=== PATIENT | female | born 1950 | race African-American/Black ===

== ENCOUNTER 2021-10-19 13:41 | Inpatient (IN) ==
[2021-10-19 14:33] LABS: PCO2 Arterial 23 mmHg (35-45); PO2 Arterial 118 mmHg (80-100)
[2021-10-19 14:58] LABS: ABS Monocytes 0.4 10^3/ul (0-0.8); ABS Neutrophils 3.4 10^3/ul (1.5-7.7); Eosinophil % 0.1 %; Hematocrit 47 % (35-47); Hemoglobin 15.4 g/dL (12.0-16.0); Lymphocyte % 20.4 %; Mean Corpuscular HGB Conc 33 g/dL (31-36); Mean Corpuscular Hemoglobin 29 pg (27-31); Mean Corpuscular Volume 88 fL (80-97); Mean Platelet Volume 9.2 fL (7.4-10.4); Nucleated Red Blood Cells % 0.1; Platelet Count 137 10^3/uL (150-450); Red Blood Count 5.33 10^6 /uL (3.70-4.87); Red Cell Distribution Width 16 % (10-15); White Blood Count 4.9 10^3/uL (3.5-10.8)
[2021-10-19] MEDS ORDERED: Lactated Ringers 1000 ml BAG 1,000 ML IV SCH (15:00)
[2021-10-19 15:07] LABS: Activated Partial Thrombo Time 37.7 seconds (26.0-38.0); INR 1.15 (0.86-1.15)
[2021-10-19 15:26] LABS: ALT 49 U/L (7-52); AST 78 U/L (13-39); Albumin 2.4 g/dL (3.2-5.2); Albumin/Globulin Ratio 0.6 (1-3); Alkaline Phosphatase 103 U/L (35-149); Anion Gap 10 mmol/L (2-11); Blood Urea Nitrogen 69 mg/dL (6-24); C Reactive Protein 75.72 mg/L (<8.01); CO2 Carbon Dioxide 19 mmol/L (22-32); Calcium 7.2 mg/dL (8.6-10.3); Chloride 108 mmol/L (101-111); Globulin 4.2 g/dL (2-4); Glucose 117 mg/dL (70-100); Potassium 4.9 mmol/L (3.5-5.0); Sodium 137 mmol/L (135-145); Total Protein 6.6 g/dL (6.4-8.9); eGFR CKD-EPI 5.5 (>60)
[2021-10-19 15:27] LABS: Troponin I 0.06 ng/mL (<0.03)
[2021-10-19 16:04] LABS: TSH Ultra Thyroid Stim Horm 3.69 mcIU/mL (0.34-5.60)
[2021-10-19 16:06] LABS: Free T4 0.85 ng/dL (0.61-1.12)
[2021-10-19] MEDS ORDERED: Albumin Human 25% 100 GM/400 ML BTL IV ONE (16:42)
[2021-10-19] MEDS ORDERED: Bumetanide IV 0.25 MG/ML 4 ml VIAL (1 mg) SLOW PUSH ONE (16:42)
[2021-10-19 17:22] LABS: Urine Appearance Turbid; Urine Bilirubin Negative (Negative); Urine Blood 1+ (Negative); Urine Color Amber; Urine Glucose Negative (Negative); Urine Ketones Negative (Negative); Urine Nitrite Negative (Negative); Urine Protein 3+(>=500 mg/dL) (Negative); Urine Specific Gravity 1.057 (1.002-1.030); Urine Urobilinogen Negative (Negative)
[2021-10-19] MEDS ORDERED: Cefepime 2 GM in Dextrose 2 GM/50 ML BAG IV ONE (17:28)
[2021-10-19] MEDS ORDERED: Vancomycin 1,000 MG in NS 0.9% 250 ml 250 ML IVPB ONE (17:28)
[2021-10-19 17:29] LABS: Troponin I 0.07 ng/mL (<0.03)
[2021-10-19 17:31] LABS: Urine Bacteria Absent (Absent); Urine Red Blood Cell 1+(3-5/hpf) (Absent); Urine Squamous Epithelial Cell Present (Absent); Urine White Blood Cell 1+(6-10/hpf) (Absent)
[2021-10-19 17:39] LABS: Alcohol, S < 13 mg/dL (<13)
[2021-10-19 17:44] LABS: Urine Creatinine Concentration 376.9 mg/dL
[2021-10-19] MEDS ORDERED: Vancomycin 2,000 MG in NS 0.9% 500 ml BAG 500 ML IVPB ONE (18:00)
[2021-10-19 19:25] LABS: Phosphorus 4.7 mg/dL (2.5-5.0)
[2021-10-19] MEDS: Albumin Human 25% 25 GM/100 ML BTL IV SCH ×2 (19:38→21:54)
[2021-10-19] MEDS ORDERED: Dextrose 50% Syringe 50 ml 25 GM/50 ML SYRINGE IV PUSH PRN (20:38)
[2021-10-19 20:39] LABS: Troponin I 0.06 ng/mL (<0.03)
[2021-10-19] MEDS ORDERED: PHENYLEPHRINE DRIP IVPREMIX 50 MG/250 ML BAG IV SCH (21:00)
[2021-10-19 23:04] LABS: Hepatitis B Surface Antigen Nonreactive (Nonreactive)
[2021-10-19 23:21] LABS: Hepatitis B Surface Ab Not Immune (Immune); Hepatitis C Antibody Negative (Negative)
[2021-10-19 23:24] LABS: C Reactive Protein 82.33 mg/L (<8.01); Calcium 6.8 mg/dL (8.6-10.3); Potassium 4.4 mmol/L (3.5-5.0); eGFR CKD-EPI 4.7 (>60)
[2021-10-20] MEDS: Albumin Human 25% 25 GM/100 ML BTL IV SCH ×2 (00:34→01:36)
[2021-10-20 01:39] LABS: PCO2 Arterial 26 mmHg (35-45); PO2 Arterial 83 mmHg (80-100)
[2021-10-20 03:39] LABS: HIV 4th Generation Nonreactive (Nonreactive)
[2021-10-20 04:41] LABS: Hematocrit 33 % (35-47); Hemoglobin 10.7 g/dL (12.0-16.0); Mean Corpuscular HGB Conc 32 g/dL (31-36); Mean Corpuscular Hemoglobin 29 pg (27-31); Mean Corpuscular Volume 88 fL (80-97); Mean Platelet Volume 8.3 fL (7.4-10.4); Platelet Count 91 10^3/uL (150-450); Red Blood Count 3.76 10^6 /uL (3.70-4.87); Red Cell Distribution Width 16 % (10-15); White Blood Count 4.6 10^3/uL (3.5-10.8)
[2021-10-20 04:45] LABS: INR 1.21 (0.86-1.15)
[2021-10-20 04:57] LABS: Albumin 3.1 g/dL (3.2-5.2); Albumin/Globulin Ratio 1.2 (1-3); Calcium 6.6 mg/dL (8.6-10.3); Globulin 2.6 g/dL (2-4); Magnesium 1.9 mg/dL (1.9-2.7); Phosphorus 5.3 mg/dL (2.5-5.0); Total Bilirubin 0.8 mg/dL (0.2-1.0); Total Protein 5.7 g/dL (6.4-8.9); eGFR CKD-EPI 4.4 (>60)
[2021-10-20 05:23] LABS: Anisocytosis 1+
[2021-10-20 05:24] LABS: ABS Monocytes 0.4 10^3/ul (0-0.8); ABS Neutrophils 3.2 10^3/ul (1.5-7.7); Eosinophil % 0.1 %; Lymphocyte % 21.7 %
[2021-10-20] MEDS ORDERED: Metoprolol Tartrate 5 mg VIAL 5 ml VIAL (1 mg/ml) ONE (07:52)
[2021-10-20] MEDS: Metoprolol Tartrate 5 mg VIAL 5 ml VIAL (1 mg/ml) IV PRN ×3 (07:54→23:34)
[2021-10-20] MEDS ORDERED: Lidocaine 1% VIAL 10 MG/ML VIAL ONE (08:17)
[2021-10-20] MEDS: Heparin 1,000 UNIT/ML 10 ml (10,000 UNITS) CATHLAB/DIALYSIS DIALYSIS ONE ×4 (09:21→12:54)
[2021-10-20 12:47] LABS: UR Microalbumin (mg/L) 432.7 mg/L; Urine Creatinine 210.48 mg/dL; Urine Microalbumin/Creatinine 205.5 (<31)
[2021-10-20] MEDS ORDERED: Levalbuterol HFA INHALER MDI INH PRN (14:23)
[2021-10-20] MEDS ORDERED: Perflutren Lipid Microsphere 3 ML VIAL ONE (14:29)
[2021-10-20] MEDS ORDERED: Polyethylene Glycol 3350 17 GM PACKET PO PRN (15:09)
[2021-10-20] MEDS: cefTRIAXone 1 gm/50 mL NS BAG 1 GM/50 ML BAG IVPB SCH (15:40)
[2021-10-20] MEDS ORDERED: Acetaminophen IV 1 GM/100ML VI 100 ML IV PRN (17:14)
[2021-10-20] MEDS: Mometasone/Formoter 200/5 MDI INH SCH (21:03)
[2021-10-20] MEDS ORDERED: Heparin 5000 UNITS/ML 1 mL VIAL SUBCUT SCH (22:00)
[2021-10-21] MEDS: Metoprolol Tartrate 5 mg VIAL 5 ml VIAL (1 mg/ml) IV PRN ×6 (01:35→18:55)
[2021-10-21 04:34] LABS: ABS Eosinophils 0.1 10^3/ul (0-0.6); ABS Lymphocytes 0.6 10^3/ul (1.0-4.8); ABS Monocytes 0.4 10^3/ul (0-0.8); ABS Neutrophils 5.7 10^3/ul (1.5-7.7); Eosinophil % 0.8 %; Hematocrit 41 % (35-47); Hemoglobin 13.3 g/dL (12.0-16.0); Mean Corpuscular HGB Conc 33 g/dL (31-36); Mean Corpuscular Hemoglobin 29 pg (27-31); Mean Corpuscular Volume 88 fL (80-97); Mean Platelet Volume 9.3 fL (7.4-10.4); Platelet Count 132 10^3/uL (150-450); Red Blood Count 4.62 10^6 /uL (3.70-4.87); Red Cell Distribution Width 16 % (10-15); White Blood Count 6.8 10^3/uL (3.5-10.8)
[2021-10-21 04:50] LABS: Albumin 3.2 g/dL (3.2-5.2); Albumin/Globulin Ratio 0.8 (1-3); C Reactive Protein 153.62 mg/L (<8.01); Calcium 7.3 mg/dL (8.6-10.3); Globulin 3.9 g/dL (2-4); Potassium 3.8 mmol/L (3.5-5.0); Total Bilirubin 1.2 mg/dL (0.2-1.0); Total Protein 7.1 g/dL (6.4-8.9); eGFR CKD-EPI 4.2 (>60)
[2021-10-21] MEDS ORDERED: Vancomycin 1,000 MG in NS 0.9% 250 ml 250 ML IVPB ONE (05:04)
[2021-10-21] MEDS ORDERED: Vancomycin per Pharmacy 1 EA NOTE FOLLOW UP SCH (06:00)
[2021-10-21 06:42] LABS: Magnesium 1.9 mg/dL (1.9-2.7); Phosphorus 4.6 mg/dL (2.5-5.0)
[2021-10-21] MEDS: Mometasone/Formoter 200/5 MDI INH SCH ×2 (07:20→18:36)
[2021-10-21] MEDS ORDERED: Diltiazem IV BAG D5W Premix 125 MG/125 ML BAG IV SCH (09:00)
[2021-10-21] MEDS ORDERED: Bumetanide IV 0.25 MG/ML 4 ml VIAL (1 mg) SLOW PUSH ONE (09:01)
[2021-10-21] MEDS ORDERED: Diltiazem IV push/loading dose 5 MG/ML 5 ML vial (25 mg) IV SLOW PU ONE (09:57)
[2021-10-21 15:01] LABS: NT-Pro B-Type Natriuretic Pep 312 pg/mL (<=202)
[2021-10-21 15:09] LABS: C-ANCA Negative (Negative); P-ANCA Negative (Negative)
[2021-10-21] MEDS: Heparin 1,000 UNIT/ML 10 ml (10,000 UNITS) CATHLAB/DIALYSIS DIALYSIS SCH ×4 (15:40→18:28)
[2021-10-21] MEDS ORDERED: LORazepam 2 mg VIAL 1 ml ONE (16:46)
[2021-10-21] MEDS ORDERED: Lorazepam PYXIS KEY ONE (16:46)
[2021-10-21] MEDS ORDERED: Morphine 10 MG/ML VIAL (1 ml) ONE (16:57)
[2021-10-21] MEDS: Albumin Human 5% 12.5 GM/250 ML BTL IV SCH ×2 (17:56→19:09)
[2021-10-21] MEDS ORDERED: Vancomycin 1,000 MG ONCE IVPB ONE (18:00)
[2021-10-21 18:19] LABS: PCO2 Arterial 20 mmHg (35-45); PO2 Arterial 78 mmHg (80-100)
[2021-10-21] MEDS: cefTRIAXone 1 gm/50 mL NS BAG 1 GM/50 ML BAG IVPB SCH (18:20)
[2021-10-21] MEDS ORDERED: Iodixanol (CONTRAST) 320 MG/ML 100 ML SDV IV ONE (18:47)
[2021-10-21] MEDS ORDERED: Digoxin IV 0.5 MG/2 ML AMP (0.25 MG/ML) IV SLOW PU ONE (19:36)
[2021-10-21 19:40] LABS: Anion Gap 19 mmol/L (2-11); CO2 Carbon Dioxide 15 mmol/L (22-32); Calcium 7.4 mg/dL (8.6-10.3); Chloride 103 mmol/L (101-111); Potassium 4.2 mmol/L (3.5-5.0); Sodium 137 mmol/L (135-145)
[2021-10-21] MEDS ORDERED: Amiodarone 150 mg IVPREMIX 150 MG/100 ML BAG IV ONE (19:44)
[2021-10-21 19:45] LABS: Blood Urea Nitrogen 47 mg/dL (6-24); Glucose 189 mg/dL (70-100); eGFR CKD-EPI 4.9 (>60)
[2021-10-21] MEDS ORDERED: .Amiodarone 24HR ONLY IV Protocol Order Note IV ONE (19:48)
[2021-10-21] MEDS ORDERED: Amiodarone 360 MG IVPREMIX 360 MG/200 ML BAG IV SCH (20:00)
[2021-10-21] MEDS ORDERED: cefTRIAXone 1 gm/50 mL NS BAG 1 GM/50 ML BAG IVPB SCH (20:00)
[2021-10-21 20:05] LABS: Troponin I 0.12 ng/mL (<0.03)
[2021-10-21 23:58] LABS: PCO2 Arterial 30 mmHg (35-45); PO2 Arterial 123 mmHg (80-100)
[2021-10-22] MEDS ORDERED: Amiodarone 360 MG IVPREMIX 360 MG/200 ML BAG IV SCH (02:00)
[2021-10-22] MEDS: PHENYLEPHRINE DRIP IVPREMIX 50 MG/250 ML BAG IV SCH (02:51)
[2021-10-22] MEDS ORDERED: Iodixanol (CONTRAST) 320 MG/ML 100 ML SDV IV ONE (03:01)
[2021-10-22 04:42] LABS: ABS Eosinophils 0.1 10^3/ul (0-0.6); ABS Lymphocytes 1.2 10^3/ul (1.0-4.8); ABS Monocytes 0.5 10^3/ul (0-0.8); ABS Neutrophils 7.3 10^3/ul (1.5-7.7); Eosinophil % 0.6 %; Hematocrit 39 % (35-47); Hemoglobin 13.1 g/dL (12.0-16.0); Mean Corpuscular HGB Conc 34 g/dL (31-36); Mean Corpuscular Hemoglobin 29 pg (27-31); Mean Corpuscular Volume 87 fL (80-97); Nucleated Red Blood Cells % 0.1; PCO2 Arterial 33 mmHg (35-45); PO2 Arterial 105 mmHg (80-100); Platelet Count 167 10^3/uL (150-450); Red Cell Distribution Width 16 % (10-15); White Blood Count 9.1 10^3/uL (3.5-10.8)
[2021-10-22 04:58] LABS: Anion Gap 15 mmol/L (2-11); Blood Urea Nitrogen 57 mg/dL (6-24); CO2 Carbon Dioxide 18 mmol/L (22-32); Calcium 7.1 mg/dL (8.6-10.3); Chloride 104 mmol/L (101-111); Glucose 113 mg/dL (70-100); Magnesium 1.8 mg/dL (1.9-2.7); Phosphorus 4.4 mg/dL (2.5-5.0); Potassium 4.1 mmol/L (3.5-5.0); Sodium 137 mmol/L (135-145); eGFR CKD-EPI 3.8 (>60)
[2021-10-22 05:20] LABS: Vancomycin Random 23.3 mcg/mL
[2021-10-22 05:51] LABS: Rapid COVID-19 Molecular Undetected (Undetected)
[2021-10-22] MEDS: Heparin 1,000 UNIT/ML 10 ml (10,000 UNITS) CATHLAB/DIALYSIS DIALYSIS SCH ×2 (07:40→08:25)
[2021-10-22] MEDS: Mometasone/Formoter 200/5 MDI INH SCH ×2 (08:00→19:08)
[2021-10-22] MEDS ORDERED: Hydrocortisone INJ 250 MG VIAL IV ONE (08:27)
[2021-10-22] MEDS ORDERED: Vasopressin 100 UNITS in D5W 250 ml BAG 245 ML IV SCH (08:30)
[2021-10-22 08:40] LABS: Troponin I 0.11 ng/mL (<0.03)
[2021-10-22] MEDS ORDERED: Diltiazem IV push/loading dose 5 MG/ML 5 ML vial (25 mg) IV SLOW PU ONE (08:51)
[2021-10-22] MEDS ORDERED: Albumin Human 5% 12.5 GM/250 ML BTL IV PRN (08:53)
[2021-10-22] MEDS: Piperacillin/Tazobac ADVAN 3.375 GM in NS 0.9% 100 ml BAG 100 ML IV ONE ×2 (08:54→13:09)
[2021-10-22] MEDS ORDERED: Albumin Human 5% 12.5 GM/250 ML BTL IV ONE (08:58)
[2021-10-22] MEDS ORDERED: Hydrocortisone INJ 100 MG/2ML 2 ML VIAL IV ONE (09:00)
[2021-10-22] MEDS ORDERED: Zosyn per Pharmacy NOTE FOLLOW UP SCH (09:00)
[2021-10-22] MEDS: Pantoprazole VIAL 40 MG VIAL IV SCH (09:04)
[2021-10-22 09:24] LABS: ABS Eosinophils 0.1 10^3/ul (0-0.6); ABS Lymphocytes 1.4 10^3/ul (1.0-4.8); ABS Monocytes 0.5 10^3/ul (0-0.8); ABS Neutrophils 8.6 10^3/ul (1.5-7.7); Eosinophil % 0.7 %; Hematocrit 44 % (35-47); Hemoglobin 14.5 g/dL (12.0-16.0); Lymphocyte % 13.4 %; Mean Corpuscular HGB Conc 33 g/dL (31-36); Mean Corpuscular Hemoglobin 29 pg (27-31); Mean Corpuscular Volume 87 fL (80-97); Mean Platelet Volume 10.4 fL (7.4-10.4); Nucleated Red Blood Cells % 0.1; Platelet Count 217 10^3/uL (150-450); Red Blood Count 5.03 10^6 /uL (3.70-4.87); Red Cell Distribution Width 16 % (10-15); Troponin I 0.12 ng/mL (<0.03); White Blood Count 10.7 10^3/uL (3.5-10.8)
[2021-10-22] MEDS ORDERED: Magnesium Sulfate IV 3 GM in NS 0.9% 100 ml BAG 100 ML IVPB ONE (10:10)
[2021-10-22 11:13] LABS: PCO2 Arterial 27 mmHg (35-45); PO2 Arterial 100 mmHg (80-100)
[2021-10-22] MEDS ORDERED: Lactated Ringers 1000 ml BAG 1,000 ML IV ONE (11:21)
[2021-10-22] MEDS ORDERED: Heparin 1,000 UNIT/ML 10 ml (10,000 UNITS) CATHLAB/DIALYSIS DIALYSIS SCH (14:00)
[2021-10-22 15:31] LABS: ABS Lymphocytes 1.1 10^3/ul (1.0-4.8); ABS Monocytes 0.6 10^3/ul (0-0.8); ABS Neutrophils 7.1 10^3/ul (1.5-7.7); Eosinophil % 0.4 %; Hematocrit 39 % (35-47); Hemoglobin 12.8 g/dL (12.0-16.0); Lymphocyte % 12.4 %; Mean Corpuscular HGB Conc 33 g/dL (31-36); Mean Corpuscular Hemoglobin 28 pg (27-31); Mean Corpuscular Volume 86 fL (80-97); Mean Platelet Volume 9.9 fL (7.4-10.4); Nucleated Red Blood Cells % 0.1; Platelet Count 184 10^3/uL (150-450); Red Blood Count 4.53 10^6 /uL (3.70-4.87); Red Cell Distribution Width 16 % (10-15); White Blood Count 8.9 10^3/uL (3.5-10.8)
[2021-10-22] MEDS: Nicotine PATCH 21 MG/24 HR PATCH TRANSDERM SCH (15:50)
[2021-10-22] MEDS: Hydrocortisone INJ 100 MG/2ML 2 ML VIAL IV SCH (15:50)
[2021-10-22] MEDS ORDERED: Vancomycin 1000 MG in NS 0.9% 250 ML IVPB ONE (16:00)
[2021-10-22] MEDS ORDERED: Lactated Ringers 1000 ml BAG 500 ML IV ONE (16:00)
[2021-10-22 16:13] LABS: ABS Lymphocytes 1.2 10^3/ul (1.0-4.8); ABS Monocytes 0.7 10^3/ul (0-0.8); Eosinophil % 0.4 %; Hematocrit 38 % (35-47); Hemoglobin 12.8 g/dL (12.0-16.0); Lymphocyte % 13.9 %; Mean Corpuscular HGB Conc 33 g/dL (31-36); Mean Corpuscular Hemoglobin 29 pg (27-31); Mean Corpuscular Volume 86 fL (80-97); Mean Platelet Volume 9.1 fL (7.4-10.4); PCO2 Arterial 26 mmHg (35-45); PO2 Arterial 74 mmHg (80-100); Platelet Count 176 10^3/uL (150-450); Red Blood Count 4.46 10^6 /uL (3.70-4.87); Red Cell Distribution Width 16 % (10-15)
[2021-10-22 16:29] LABS: Albumin 3.3 g/dL (3.2-5.2); Albumin/Globulin Ratio 0.9 (1-3); Calcium 7.6 mg/dL (8.6-10.3); Globulin 3.6 g/dL (2-4); Magnesium 2.7 mg/dL (1.9-2.7); Phosphorus 3.4 mg/dL (2.5-5.0); Potassium 4.1 mmol/L (3.5-5.0); Total Bilirubin 0.8 mg/dL (0.2-1.0); Total Protein 6.9 g/dL (6.4-8.9); eGFR CKD-EPI 4.2 (>60)
[2021-10-22 17:03] LABS: Creatine Kinase 2792 U/L (10-223)
[2021-10-22] MEDS: ZOSYN 3.375 GM Q12H per EXTENDED INFUSION IV SCH (17:20)
[2021-10-22] MEDS ORDERED: Digoxin IV 0.5 MG/2 ML AMP (0.25 MG/ML) IV SLOW PU ONE (22:29)
[2021-10-23] MEDS: Hydrocortisone INJ 100 MG/2ML 2 ML VIAL IV SCH ×3 (00:03→16:58)
[2021-10-23] MEDS: PHENYLEPHRINE DRIP IVPREMIX 50 MG/250 ML BAG IV SCH ×3 (00:03→13:14)
[2021-10-23 04:35] LABS: ABS Lymphocytes 0.8 10^3/ul (1.0-4.8); ABS Monocytes 0.6 10^3/ul (0-0.8); ABS Neutrophils 9.1 10^3/ul (1.5-7.7); Hematocrit 42 % (35-47); Hemoglobin 13.6 g/dL (12.0-16.0); Lymphocyte % 7.9 %; Mean Corpuscular HGB Conc 32 g/dL (31-36); Mean Corpuscular Hemoglobin 28 pg (27-31); Mean Corpuscular Volume 88 fL (80-97); Mean Platelet Volume 9.9 fL (7.4-10.4); Nucleated Red Blood Cells % 0.1; Platelet Count 217 10^3/uL (150-450); Red Cell Distribution Width 16 % (10-15); White Blood Count 10.6 10^3/uL (3.5-10.8)
[2021-10-23 04:54] LABS: Calcium 7.4 mg/dL (8.6-10.3); Magnesium 2.9 mg/dL (1.9-2.7); Potassium 4.8 mmol/L (3.5-5.0); eGFR CKD-EPI 3.3 (>60)
[2021-10-23 05:15] LABS: Vancomycin Random 22.2 mcg/mL
[2021-10-23] MEDS: ZOSYN 3.375 GM Q12H per EXTENDED INFUSION IV SCH (05:33)
[2021-10-23 05:56] LABS: Phosphorus 6.4 mg/dL (2.5-5.0)
[2021-10-23] MEDS: Heparin DRIP 25,000 UNITS BAG 25,000 UNITS/500 ML BAG IV SCH (05:56)
[2021-10-23] MEDS ORDERED: Heparin 5000 UNITS/ML 1 mL VIAL IV SCH (06:00)
[2021-10-23] MEDS ORDERED: Vancomycin Random Level NOTE FOLLOW UP ONE (06:00)
[2021-10-23] MEDS ORDERED: Sodium Bicarbonate 8.4% SYR 50 ml SYRINGE IV ONE (06:20)
[2021-10-23 08:58] LABS: PCO2 Arterial 22 mmHg (35-45); PO2 Arterial 108 mmHg (80-100)
[2021-10-23] MEDS: Mometasone/Formoter 200/5 MDI INH SCH ×2 (09:14→19:50)
[2021-10-23] MEDS: Heparin 1,000 UNIT/ML 10 ml (10,000 UNITS) CATHLAB/DIALYSIS DIALYSIS SCH (11:47)
[2021-10-23 12:13] LABS: Kappa Free Light Chain 67.9 mg/dL; Lambda Free Light Chain, S 29.3 mg/dL
[2021-10-23] MEDS: Nicotine PATCH 21 MG/24 HR PATCH TRANSDERM SCH (13:26)
[2021-10-23] MEDS: Pantoprazole VIAL 40 MG VIAL IV SCH (13:32)
[2021-10-23 14:48] LABS: Phospholipase A2 Receptor IFA Negative (Negative); Phospholipase A2 ReceptorELISA <2 RU/mL
[2021-10-23 15:55] LABS: Complement C3 123 mg/dL (75 - 175)
[2021-10-23 16:00] LABS: Blood Urea Nitrogen 40 mg/dL (6-24); CO2 Carbon Dioxide 22 mmol/L (22-32); Calcium 7.7 mg/dL (8.6-10.3); Chloride 99 mmol/L (101-111); Glucose 139 mg/dL (70-100); Sodium 139 mmol/L (135-145); eGFR CKD-EPI 5.2 (>60)
[2021-10-23] MEDS ORDERED: Vancomycin 1000 MG in NS 0.9% 250 ML IVPB ONE (16:00)
[2021-10-23 17:35] LABS: Anion Gap 18 mmol/L (2-11)
[2021-10-23] MEDS ORDERED: cefTRIAXone 1 gm/50 mL NS BAG 1 GM/50 ML BAG IVPB SCH (18:00)
[2021-10-23 21:22] LABS: Albumin 1.9 g/dL (3.4-4.7); Albumin/Globulin Ratio 0.51; Gamma Globulin 1.5 g/dL (0.6-1.6); Total Protein(PEP) 5.6 g/dL (6.3 - 7.9)
[2021-10-23] MEDS: Phenylephrine IV 50 MG in NS 0.9% 250 ml 245 ML IV SCH (22:12)
[2021-10-23] MEDS: Metoprolol Tartrate 5 mg VIAL 5 ml VIAL (1 mg/ml) IV PRN (23:59)
[2021-10-24] MEDS: Hydrocortisone INJ 100 MG/2ML 2 ML VIAL IV SCH ×2 (01:00→09:59)
[2021-10-24] MEDS: Heparin DRIP 25,000 UNITS BAG 25,000 UNITS/500 ML BAG IV SCH (02:05)
[2021-10-24] MEDS ORDERED: Vancomycin Random Level NOTE FOLLOW UP ONE (06:00)
[2021-10-24 06:02] LABS: ABS Basophils 0.1 10^3/ul (0-0.2); ABS Lymphocytes 0.9 10^3/ul (1.0-4.8); ABS Monocytes 0.7 10^3/ul (0-0.8); ABS Neutrophils 11.4 10^3/ul (1.5-7.7); Hematocrit 38 % (35-47); Hemoglobin 12.6 g/dL (12.0-16.0); Lymphocyte % 6.6 %; Mean Corpuscular HGB Conc 33 g/dL (31-36); Mean Corpuscular Hemoglobin 29 pg (27-31); Mean Corpuscular Volume 86 fL (80-97); Mean Platelet Volume 9.8 fL (7.4-10.4); Nucleated Red Blood Cells % 0.1; Platelet Count 226 10^3/uL (150-450); Red Blood Count 4.42 10^6 /uL (3.70-4.87); Red Cell Distribution Width 16 % (10-15); White Blood Count 13.2 10^3/uL (3.5-10.8)
[2021-10-24 06:54] LABS: Vancomycin Random 32.5 mcg/mL
[2021-10-24 07:36] LABS: Calcium 7.1 mg/dL (8.6-10.3); Magnesium 2.3 mg/dL (1.9-2.7); Phosphorus 4.7 mg/dL (2.5-5.0); Potassium 3.8 mmol/L (3.5-5.0); eGFR CKD-EPI 4.2 (>60)
[2021-10-24] MEDS: Pantoprazole VIAL 40 MG VIAL IV SCH (10:05)
[2021-10-24] MEDS: Nicotine PATCH 21 MG/24 HR PATCH TRANSDERM SCH (10:06)
[2021-10-24] MEDS ORDERED: Vancomycin per Pharmacy 1 EA NOTE FOLLOW UP SCH (11:00)
[2021-10-24 11:07] LABS: Cryoglobulin Negative %ppt (Negative)
[2021-10-24] MEDS ORDERED: Warfarin per PHARMACY **NOTE FOLLOW UP SCH (12:00)
[2021-10-24 15:07] LABS: INR 1.04 (0.86-1.15)
[2021-10-24] MEDS: Mometasone/Formoter 200/5 MDI INH SCH ×2 (16:03→21:56)
[2021-10-24] MEDS ORDERED: Warfarin DAILY REMINDER **NOTE FOLLOW UP SCH (17:00)
[2021-10-24] MEDS: Phenylephrine IV 50 MG in NS 0.9% 250 ml 245 ML IV SCH (17:45)
[2021-10-24] MEDS ORDERED: Heparin 1,000 UNIT/ML 10 ml (10,000 UNITS) CATHLAB/DIALYSIS DIALYSIS ONE (20:00)
[2021-10-24] MEDS ORDERED: Hydrocortisone INJ 100 MG/2ML 2 ML VIAL IV SCH (21:00)
[2021-10-25 05:03] LABS: ABS Lymphocytes 0.5 10^3/ul (1.0-4.8); ABS Monocytes 0.6 10^3/ul (0-0.8); Hematocrit 34 % (35-47); Hemoglobin 11.4 g/dL (12.0-16.0); Lymphocyte % 5.9 %; Mean Corpuscular HGB Conc 33 g/dL (31-36); Mean Corpuscular Hemoglobin 29 pg (27-31); Mean Corpuscular Volume 86 fL (80-97); Platelet Count 174 10^3/uL (150-450); Red Blood Count 3.96 10^6 /uL (3.70-4.87); Red Cell Distribution Width 16 % (10-15); White Blood Count 9.2 10^3/uL (3.5-10.8)
[2021-10-25 05:17] LABS: Activated Partial Thrombo Time 44.9 seconds (26.0-38.0); INR 1.01 (0.86-1.15)
[2021-10-25 05:21] LABS: Calcium 6.6 mg/dL (8.6-10.3); Magnesium 2.4 mg/dL (1.9-2.7); Phosphorus 4.9 mg/dL (2.5-5.0); Potassium 3.3 mmol/L (3.5-5.0); eGFR CKD-EPI 3.4 (>60)
[2021-10-25 05:35] LABS: Vancomycin Random 26.3 mcg/mL
[2021-10-25] MEDS ORDERED: Potassium Chlor 20 meq TAB.ER PO ONE (05:37)
[2021-10-25] MEDS ORDERED: Vancomycin Random Level NOTE FOLLOW UP ONE (06:00)
[2021-10-25] MEDS ORDERED: Pantoprazole VIAL 40 MG VIAL ONE (07:44)
[2021-10-25] MEDS: Nicotine PATCH 21 MG/24 HR PATCH TRANSDERM SCH (07:51)
[2021-10-25] MEDS: Pantoprazole VIAL 40 MG VIAL IV SCH (07:51)
[2021-10-25] MEDS: Mometasone/Formoter 200/5 MDI INH SCH ×2 (10:42→19:58)
[2021-10-25] MEDS: Heparin 1,000 UNIT/ML 10 ml (10,000 UNITS) CATHLAB/DIALYSIS DIALYSIS SCH (13:19)
[2021-10-25] MEDS ORDERED: Vancomycin 750 MG in NS 0.9% 250 ML IVPB ONE (18:00)
[2021-10-25 22:31] LABS: Calcium 7.1 mg/dL (8.6-10.3); Potassium 3.1 mmol/L (3.5-5.0); eGFR CKD-EPI 4.6 (>60)
[2021-10-26 05:14] LABS: INR 1.01 (0.86-1.15)
[2021-10-26 05:25] LABS: Calcium 7.1 mg/dL (8.6-10.3); Magnesium 2.1 mg/dL (1.9-2.7); Phosphorus 4.1 mg/dL (2.5-5.0); Potassium 3.2 mmol/L (3.5-5.0); eGFR CKD-EPI 4.2 (>60)
[2021-10-26] MEDS ORDERED: Potassium Chlor 20 meq TAB.ER PO ONE (08:15)
[2021-10-26] MEDS: Pantoprazole VIAL 40 MG VIAL IV SCH (08:19)
[2021-10-26] MEDS ORDERED: fentaNYL 100 mcg/2 ml 50 MCG/ML VIAL ONE (09:00)
[2021-10-26] MEDS ORDERED: Midazolam 5 mg/5 ml VIAL 1 mg/ml 5 ml VIAL (5 mg) ONE (09:00)
[2021-10-26] MEDS ORDERED: Heparin 2 UNITS/ML IVPREMIX 1,000 UNIT/500 ML BAG IV ONE (09:01)
[2021-10-26] MEDS ORDERED: Lidocaine 1% VIAL 10 MG/ML VIAL ONE (09:01)
[2021-10-26] MEDS: Mometasone/Formoter 200/5 MDI INH SCH ×2 (09:10→19:46)
[2021-10-26] MEDS ORDERED: Heparin 5000 UNITS/ML 1 mL VIAL ONE (09:27)
[2021-10-26] MEDS: Nicotine PATCH 21 MG/24 HR PATCH TRANSDERM SCH (10:07)
[2021-10-26] MEDS ORDERED: Heparin 5000 UNITS/ML 1 mL VIAL IV SCH (12:00)
[2021-10-26] MEDS ORDERED: Warfarin per PHARMACY **NOTE FOLLOW UP SCH (12:00)
[2021-10-26] MEDS: Heparin DRIP 25,000 UNITS BAG 25,000 UNITS/500 ML BAG IV SCH ×2 (12:45→16:44)
[2021-10-26] MEDS ORDERED: Heparin 1,000 UNIT/ML 10 ml (10,000 UNITS) CATHLAB/DIALYSIS DIALYSIS ONE (14:00)
[2021-10-27 01:55] LABS: PCO2 Arterial 27 mmHg (35-45); PO2 Arterial 77 mmHg (80-100)
[2021-10-27] MEDS ORDERED: Metoprolol Tartrate 5 mg VIAL 5 ml VIAL (1 mg/ml) IV ONE (04:39)
[2021-10-27 04:44] LABS: ABS Lymphocytes 0.6 10^3/ul (1.0-4.8); ABS Monocytes 0.8 10^3/ul (0-0.8); ABS Neutrophils 4.5 10^3/ul (1.5-7.7); Eosinophil % 0.6 %; Hematocrit 37 % (35-47); Hemoglobin 12.2 g/dL (12.0-16.0); Lymphocyte % 10.8 %; Mean Corpuscular HGB Conc 33 g/dL (31-36); Mean Corpuscular Hemoglobin 29 pg (27-31); Mean Corpuscular Volume 89 fL (80-97); Mean Platelet Volume 9.9 fL (7.4-10.4); Nucleated Red Blood Cells % 0.1; Platelet Count 177 10^3/uL (150-450); Red Blood Count 4.22 10^6 /uL (3.70-4.87); Red Cell Distribution Width 16 % (10-15)
[2021-10-27 04:49] LABS: INR 3.09 (0.86-1.15)
[2021-10-27 05:05] LABS: Albumin 2.7 g/dL (3.2-5.2); Albumin/Globulin Ratio 0.8 (1-3); Globulin 3.5 g/dL (2-4); Potassium 3.3 mmol/L (3.5-5.0); Total Bilirubin 0.6 mg/dL (0.2-1.0); Total Protein 6.2 g/dL (6.4-8.9); eGFR CKD-EPI 3.3 (>60)
[2021-10-27 05:09] LABS: Calcium 6.4 mg/dL (8.6-10.3)
[2021-10-27] MEDS: Mometasone/Formoter 200/5 MDI INH SCH ×2 (07:56→19:55)
[2021-10-27] MEDS: Pantoprazole VIAL 40 MG VIAL IV SCH (08:21)
[2021-10-27 08:28] LABS: Activated Partial Thrombo Time >240.0 seconds (26.0-38.0)
[2021-10-27] MEDS ORDERED: Amiodarone 150 mg IVPREMIX 150 MG/100 ML BAG IV ONE (08:56)
[2021-10-27] MEDS ORDERED: Potassium Chlor 20 meq TAB.ER PO ONE ×2 (09:31→14:00)
[2021-10-27 11:45] LABS: Magnesium 2.1 mg/dL (1.9-2.7)
[2021-10-27 11:51] LABS: Phosphorus 7.3 mg/dL (2.5-5.0)
[2021-10-27] MEDS ORDERED: Heparin 1,000 UNIT/ML 10 ml (10,000 UNITS) CATHLAB/DIALYSIS DIALYSIS ONE (15:00)
[2021-10-27] MEDS ORDERED: Albumin Human 25% 12.5 GM/50 ML BTL IV ONE ×2 (15:38→15:42)
[2021-10-27] MEDS ORDERED: Vancomycin 750 MG in NS 0.9% 250 ML IVPB ONE (16:00)
[2021-10-27] MEDS ORDERED: Heparin 1,000 UNIT/ML 10 ml (10,000 UNITS) CATHLAB/DIALYSIS IV PRN (16:16)
[2021-10-27] MEDS: Heparin 1,000 UNIT/ML 10 ml (10,000 UNITS) CATHLAB/DIALYSIS IV SCH (16:45)
[2021-10-27] MEDS ORDERED: Warfarin - No Order Today **NOTE FOLLOW UP ONE (17:00)
[2021-10-27] MEDS: Amiodarone 400 mg TAB PO SCH (21:02)
[2021-10-28 05:05] LABS: INR 1.2 (0.86-1.15)
[2021-10-28 05:15] LABS: Magnesium 2.1 mg/dL (1.9-2.7); Potassium 3.8 mmol/L (3.5-5.0); eGFR CKD-EPI 3.7 (>60)
[2021-10-28] MEDS: Mometasone/Formoter 200/5 MDI INH SCH ×2 (07:20→19:49)
[2021-10-28] MEDS: Pantoprazole VIAL 40 MG VIAL IV SCH (08:21)
[2021-10-28] MEDS: Amiodarone 400 mg TAB PO SCH ×2 (08:22→21:00)
[2021-10-28] MEDS: Heparin 1,000 UNIT/ML 10 ml (10,000 UNITS) CATHLAB/DIALYSIS IV SCH (08:54)
[2021-10-29 05:01] LABS: INR 1.27 (0.86-1.15)
[2021-10-29] MEDS: Mometasone/Formoter 200/5 MDI INH SCH ×2 (07:27→21:18)
[2021-10-29] MEDS: Amiodarone 400 mg TAB PO SCH ×2 (08:34→21:22)
[2021-10-29] MEDS: Heparin 1,000 UNIT/ML 10 ml (10,000 UNITS) CATHLAB/DIALYSIS IV SCH (08:35)
[2021-10-29] MEDS: Pantoprazole VIAL 40 MG VIAL IV SCH (09:03)
[2021-10-29 11:10] LABS: ABS Eosinophils 0.1 10^3/ul (0-0.6); ABS Lymphocytes 0.5 10^3/ul (1.0-4.8); ABS Monocytes 0.7 10^3/ul (0-0.8); Eosinophil % 1.5 %; Hematocrit 37 % (35-47); Hemoglobin 11.9 g/dL (12.0-16.0); Mean Corpuscular HGB Conc 33 g/dL (31-36); Mean Corpuscular Hemoglobin 29 pg (27-31); Mean Corpuscular Volume 88 fL (80-97); Mean Platelet Volume 8.6 fL (7.4-10.4); Nucleated Red Blood Cells % 0.1; Platelet Count 144 10^3/uL (150-450); Red Blood Count 4.17 10^6 /uL (3.70-4.87); Red Cell Distribution Width 15 % (10-15); White Blood Count 5.3 10^3/uL (3.5-10.8)
[2021-10-29 11:15] LABS: INR 1.29 (0.86-1.15)
[2021-10-29 11:26] LABS: Albumin 2.8 g/dL (3.2-5.2); Albumin/Globulin Ratio 0.8 (1-3); Calcium 6.7 mg/dL (8.6-10.3); Globulin 3.4 g/dL (2-4); Potassium 3.7 mmol/L (3.5-5.0); Total Bilirubin 0.6 mg/dL (0.2-1.0); Total Protein 6.2 g/dL (6.4-8.9)
[2021-10-29] MEDS: Heparin 5000 UNITS/ML 1 mL VIAL IV SCH (18:17)
[2021-10-29] MEDS: Heparin DRIP 25,000 UNITS BAG 25,000 UNITS/500 ML BAG IV SCH (18:17)
[2021-10-30] MEDS ORDERED: Vancomycin Random Level NOTE FOLLOW UP ONE (06:00)
[2021-10-30] MEDS ORDERED: Heparin 1,000 UNIT/ML 10 ml (10,000 UNITS) CATHLAB/DIALYSIS DIALYSIS ONE (08:00)
[2021-10-30] MEDS: Mometasone/Formoter 200/5 MDI INH SCH ×2 (08:23→19:27)
[2021-10-30 08:46] LABS: ABS Eosinophils 0.1 10^3/ul (0-0.6); ABS Lymphocytes 0.6 10^3/ul (1.0-4.8); ABS Monocytes 0.3 10^3/ul (0-0.8); ABS Neutrophils 3.3 10^3/ul (1.5-7.7); Eosinophil % 2.2 %; Hematocrit 34 % (35-47); Hemoglobin 11.2 g/dL (12.0-16.0); Lymphocyte % 13.5 %; Mean Corpuscular HGB Conc 33 g/dL (31-36); Mean Corpuscular Hemoglobin 29 pg (27-31); Mean Corpuscular Volume 88 fL (80-97); Nucleated Red Blood Cells % 0.1; Platelet Count 159 10^3/uL (150-450); Red Blood Count 3.91 10^6 /uL (3.70-4.87); Red Cell Distribution Width 16 % (10-15); White Blood Count 4.4 10^3/uL (3.5-10.8)
[2021-10-30 09:01] LABS: Calcium 6.6 mg/dL (8.6-10.3); Potassium 3.7 mmol/L (3.5-5.0); eGFR CKD-EPI 2.7 (>60)
[2021-10-30 09:10] LABS: Activated Partial Thrombo Time 83.5 seconds (26.0-38.0); INR 1.37 (0.86-1.15)
[2021-10-30 10:20] LABS: Vancomycin Random 20.4 mcg/mL
[2021-10-30] MEDS: Heparin 1,000 UNIT/ML 10 ml (10,000 UNITS) CATHLAB/DIALYSIS IV SCH (11:59)
[2021-10-30] MEDS: Amiodarone 400 mg TAB PO SCH ×2 (12:22→20:18)
[2021-10-30] MEDS: Pantoprazole VIAL 40 MG VIAL IV SCH (12:22)
[2021-10-30] MEDS ORDERED: Warfarin DAILY REMINDER **NOTE FOLLOW UP SCH (17:00)
[2021-10-30] MEDS: Heparin 5000 UNITS/ML 1 mL VIAL IV SCH (17:05)
[2021-10-30] MEDS: Heparin DRIP 25,000 UNITS BAG 25,000 UNITS/500 ML BAG IV SCH (17:05)
[2021-10-30] MEDS ORDERED: Vancomycin 750 MG in NS 0.9% 250 ML IVPB ONE (18:00)
[2021-10-31 05:51] LABS: ABS Eosinophils 0.1 10^3/ul (0-0.6); ABS Lymphocytes 0.6 10^3/ul (1.0-4.8); ABS Monocytes 0.6 10^3/ul (0-0.8); ABS Neutrophils 3.4 10^3/ul (1.5-7.7); Eosinophil % 1.5 %; Hematocrit 35 % (35-47); Hemoglobin 11.6 g/dL (12.0-16.0); Lymphocyte % 12.5 %; Mean Corpuscular HGB Conc 33 g/dL (31-36); Mean Corpuscular Hemoglobin 29 pg (27-31); Mean Corpuscular Volume 88 fL (80-97); Mean Platelet Volume 8.6 fL (7.4-10.4); Platelet Count 146 10^3/uL (150-450); Red Cell Distribution Width 16 % (10-15); White Blood Count 4.7 10^3/uL (3.5-10.8)
[2021-10-31 05:57] LABS: INR 1.4 (0.86-1.15)
[2021-10-31] MEDS: Mometasone/Formoter 200/5 MDI INH SCH ×2 (07:51→20:29)
[2021-10-31] MEDS: Amiodarone 400 mg TAB PO SCH ×2 (08:09→21:08)
[2021-10-31] MEDS: Heparin 1,000 UNIT/ML 10 ml (10,000 UNITS) CATHLAB/DIALYSIS IV SCH (09:28)
[2021-11-01] MEDS ORDERED: Vancomycin Random Level NOTE FOLLOW UP ONE (06:00)
[2021-11-01 06:38] LABS: INR 1.49 (0.86-1.15)
[2021-11-01] MEDS: Mometasone/Formoter 200/5 MDI INH SCH (07:58)
[2021-11-01] MEDS ORDERED: Heparin 1,000 UNIT/ML 10 ml (10,000 UNITS) CATHLAB/DIALYSIS DIALYSIS ONE (10:00)
[2021-11-01 11:16] VITALS: BP 136/83
[2021-11-01] MEDS: Amiodarone 400 mg TAB PO SCH (12:15)
[2021-11-01] MEDS: Heparin 1,000 UNIT/ML 10 ml (10,000 UNITS) CATHLAB/DIALYSIS IV SCH (12:16)
== END 2021-11-01 14:00 | disposition home health service (06) | DRG 673 ==
LOC: ED 13:41 → EDHOLD 18:40 → SUATTDRO 18:40 → ICU 20:56 → MED 10-20 18:05 → ICU 10-21 11:36 → MED 10-29 23:05
PROVIDERS: ADMIT Surgery Surgical Critical Care; ATTEND Student in an Organized Health Care Education/Training Program

== ENCOUNTER 2021-11-29 12:37 | Observation (INO) ==
[2021-11-29 14:06] LABS: ABS Eosinophils 0.2 10^3/ul (0-0.6); ABS Lymphocytes 1.1 10^3/ul (1.0-4.8); ABS Monocytes 0.4 10^3/ul (0-0.8); ABS Neutrophils 2.5 10^3/ul (1.5-7.7); Eosinophil % 3.9 %; Hematocrit 27 % (35-47); Hemoglobin 8.6 g/dL (12.0-16.0); Lymphocyte % 26.2 %; Mean Corpuscular HGB Conc 32 g/dL (31-36); Mean Corpuscular Hemoglobin 29 pg (27-31); Mean Corpuscular Volume 90 fL (80-97); Mean Platelet Volume 7.4 fL (7.4-10.4); Platelet Count 160 10^3/uL (150-450); Red Blood Count 2.95 10^6 /uL (3.70-4.87); Red Cell Distribution Width 17 % (10-15); White Blood Count 4.3 10^3/uL (3.5-10.8)
[2021-11-29 14:16] LABS: INR 1.15 (0.86-1.15)
[2021-11-29 14:28] LABS: Albumin 2.9 g/dL (3.2-5.2); Albumin/Globulin Ratio 0.8 (1-3); Globulin 3.8 g/dL (2-4); Potassium 3.6 mmol/L (3.5-5.0); Total Bilirubin 0.3 mg/dL (0.2-1.0); Total Protein 6.7 g/dL (6.4-8.9); eGFR CKD-EPI 12.1 (>60)
[2021-11-29 17:36] LABS: ABS Eosinophils 0.2 10^3/ul (0-0.6); ABS Lymphocytes 1.1 10^3/ul (1.0-4.8); ABS Monocytes 0.5 10^3/ul (0-0.8); ABS Neutrophils 2.5 10^3/ul (1.5-7.7); Eosinophil % 3.9 %; Hematocrit 27 % (35-47); Hemoglobin 8.7 g/dL (12.0-16.0); Lymphocyte % 24.2 %; Mean Corpuscular HGB Conc 32 g/dL (31-36); Mean Corpuscular Hemoglobin 29 pg (27-31); Mean Corpuscular Volume 90 fL (80-97); Mean Platelet Volume 7.8 fL (7.4-10.4); Nucleated Red Blood Cells % 0.1; Platelet Count 174 10^3/uL (150-450); Red Cell Distribution Width 17 % (10-15); White Blood Count 4.4 10^3/uL (3.5-10.8)
[2021-11-29] MEDS ORDERED: FERRIC SUBSULFATE TOPICAL ONE (17:47)
[2021-11-29] MEDS ORDERED: Polyethylene Glycol 3350 BTL 238 GM BTL PO PRN (18:08)
[2021-11-29] MEDS ORDERED: Levalbuterol 0.63MG/3ML NEB UNIT OF USE INH PRN (18:08)
[2021-11-29] MEDS ORDERED: Polyethylene Glycol 3350 17 GM PACKET PO PRN (19:00)
[2021-11-29] MEDS ORDERED: Dextrose 50% Syringe 50 ml 25 GM/50 ML SYRINGE IV PUSH PRN (20:56)
[2021-11-29] MEDS ORDERED: Insulin GLARGINE 100 un/ml 10 ml VIAL SUBCUT SCH ×2 (21:00)
[2021-11-30] MEDS: Mometasone/Formoter 100/5 MDI INH SCH ×2 (02:19→07:54)
[2021-11-30 05:13] LABS: Hematocrit 27 % (35-47); Hemoglobin 8.8 g/dL (12.0-16.0); Mean Corpuscular HGB Conc 33 g/dL (31-36); Mean Corpuscular Hemoglobin 30 pg (27-31); Mean Corpuscular Volume 91 fL (80-97); Mean Platelet Volume 7.7 fL (7.4-10.4); Platelet Count 163 10^3/uL (150-450); Red Blood Count 2.95 10^6 /uL (3.70-4.87); Red Cell Distribution Width 17 % (10-15); White Blood Count 4.7 10^3/uL (3.5-10.8)
[2021-11-30 05:26] LABS: Calcium 8.2 mg/dL (8.6-10.3); Potassium 3.4 mmol/L (3.5-5.0); eGFR CKD-EPI 11.2 (>60)
[2021-11-30] MEDS ORDERED: Potassium Chlor 10 meq TAB PO ONE (07:14)
[2021-11-30 16:55] VITALS: BP 130/74
== END 2021-11-30 17:25 | disposition home or self-care (01) ==
LOC: ED 12:37 → EDHOLD 12:37 → SSU 11-30 00:42
PROVIDERS: ADMIT Internal Medicine; ATTEND Internal Medicine